=== PATIENT | female | born 1990 | race Caucasian/White ===

== ENCOUNTER 2017-09-30 14:11 | Emergency (ER) | payer OTHER ==
[~2017-09-30] VITALS: Ht 170.2 cm; Wt 116.1 kg
[2017-09-30] MEDS ORDERED: MULTIVITAMINS1 EAC7 PO (14:27)
--- NOTE | 2017-09-30 14:57 | EKG ---
[facility] [address] [facility] [place] [address] Signed Normal sinus rhythm Normal ECG No previous ECGs available Confirmed by FRANCESCA DA SILVA MD ([id number]) on 09/30/2017 2:57:47 PM Electronically Signed By: FRANCESCA DA SILVA MD 09/30/17 1457 PATIENT NAME: DEREK BOOTHE Electrocardiogram DATE OF : 89 PHYSICIAN: FRANCESCA DA SILVA MD REPORT #: [id number] REPORT IS CONFIDENTIAL AND NOT TO BE RELEASED WITHOUT AUTHORIZATION
--- OUTSIDE RECORDS SUMMARY | 2017-09-30 15:41 | XMS | Clinical Summary ---
Demographics + + + | Address | [address] | | | [place] [address] | + + + | Home Phone | | + + + | Preferred Language | Unknown | + + + | Marital Status | | + + + | Hindu Affiliation | NRP | + + + | Race | White | + + + | Ethnic Group | Not or | + + + Author + + + | Author | [facility] | + + + | Organization | [facility] | + + + | Address | Unknown | + + + | Phone | Unavailable | + + + Support +------+ + + + +-------+ | Name | Relationship | Address | Phone | +------+ + + + +-------+ ECON | [address] | | #[place] | [address] | +------+ + + + +-------+ ECON | Unknown | | +------+ + + + +-------+ Care Team Providers + +------+ + | Care Astro Technician Name | Role | Phone | + +------+ + | No Pcp Per Patient | PP | Unavailable | + +------+ + Source Comments KIANNA is fully live on both EpicCare Ambulatory and EpicCare InPatient.[facility] Allergies + + + + + + | Active Allergy | Reactions | Severity | Noted | Comments | | | | | Date | | + + + + + + | Penicillin | Rash, Nausea and | | 04/22/20 | | | | Vomiting | | 17 | | + + + + + + | Soy | Hives | | 04/22/20 | | | | | | 17 | | + + + + + + Current Medications No known medications Active Problems Not on file Social History + +-------+ +--------+------+ | Tobacco Use | Types | Packs/Day | Years | Date | | | | | Used | | + +-------+ +--------+------+ | Never Smoker | | | | | + +-------+ +--------+------+ + +---+---+---+ | Smokeless Tobacco: | | | | | Never Used | | | | + +---+---+---+ + + +---------+ + | Alcohol Use | Drinks/We | oz/Week | Comments | | | ek | | | + + +---------+ + | Yes | | | once in a while | + + +---------+ + + + + | Sex Assigned at | Date Recorded | | | | + + + | Not on file | | + + + Last Filed Vital Signs + + + + | Vital Sign | Reading | Time Taken | + + + + | Blood Pressure | 116/67 | 04/22/2017 10:07 PM PDT | + + + + | Pulse | - | - | + + + + | Temperature | 36.8 C (98.2 F) | 04/22/2017 7:18 PM PDT | + + + + | Respiratory Rate | 16 | 04/22/2017 10:07 PM PDT | + + + + | Oxygen Saturation | 99% | 04/22/2017 10:07 PM PDT | + + + + | Inhaled Oxygen | - | - | | Concentration | | | + + + + | Weight | - | - | + + + + | Height | - | - | + + + + | Body Mass Index | - | - | + + + + Plan of Treatment + + + + + | Health Maintenance | Due Date | Last Done | Comments | + + + + + | INFLUENZA VACCINE | | | | | (FLU SHOT) | 7 | | | + + + + + Results Not on filefrom Last 3 Months"
--- OUTSIDE RECORDS SUMMARY | 2017-09-30 15:41 | XMS | Clinical Summary ---
Demographics + + + | Address | [address] | | | [place] [address] | + + + | Home Phone | | + + + | Preferred Language | Unknown | + + + | Marital Status | | + + + | Worship Affiliation | NRP | + + + [...] [address] | | #[place] | [phone] | +------+ + + + +-------+ ECON | Unknown | | +------+ + + + +-------+ Care Team Providers + +------+ + | Care Eligibility And Occupancy Interviewer Name | Role | Phone | + +------+ + | No Pcp Per Patient | PP | Unavailable | + +------+ + Source Comments KIANNA is fully live on both EpicCare Ambulatory and EpicCare InPatient.[facility] [place] Allergies + + + + + + [...]
== END 2017-09-30 16:58 | disposition home or self-care (01) ==
LOC: ED 14:11
DX: O99.89 Other specified diseases and conditions complicating pregnancy, childbirth and the puerperium (principal); R07.9 Chest pain, unspecified; O99.612 Diseases of the digestive system complicating pregnancy, second trimester; K29.70 Gastritis, unspecified, without bleeding; Z88.0 Allergy status to penicillin; Z91.018 Allergy to other foods; Z3A.18 18 weeks gestation of pregnancy
CPT/HCPCS: 80053; 81001; 84484; 85025; 93005; 93010; 99284

== ENCOUNTER 2018-02-28 00:03 | Inpatient (IN) | payer OTHER ==
[~2018-02-28] VITALS: Ht 167.6 cm; Wt 125.0 kg
[~2018-02-28 00:03] MED LIST: MULTIVITAMINS1 EAC7 PO
--- NOTE | 2018-02-28 16:18 | PR ---
[facility] [address] [facility] [place], [place] [address] Signed Progress Notes IP Datetime Report Generated by CPN: 02/28/2018 16:18 PROGRESS NOTES: [id number] Impression: Normal progression of labor Plan: Continue present management; Anticipate Vaginal Delivery VITAL SIGNS: [id number] Vital Signs: Reviewed; Within Normal Limits EXAM: [id number] Dilatation: 5.0 Effacement: 90 Station: -2 Uterine Contractions: every 2-4 minutes MEMBRANES: [id number] Membrane Status: Ruptured Comments: Comfortable with Epidural, making good progress. Will continue monitoring. Fetus A: [id number] FHR Baseline: 135 Variability: Moderate 6-25bpm Accelerations: 15X15 Fetus B: [id number] Signing Physician: Jo Abrams MD Copies: ~ *Electronically Signed* 02/28/18 1618 JO ABRAMS MD PATIENT NAME: DEREK BOOTHE PROGRESS NOTE DATE OF : 89 PHYSICIAN: JO ABRAMS MD RPT #: [id number] REPORT IS CONFIDENTIAL AND NOT TO BE RELEASED WITHOUT AUTHORIZATION
--- NOTE | 2018-02-28 22:11 | PR ---
[facility] [address] [facility] [place], [place] [address] Signed Progress Notes IP Datetime Report Generated by CPN: 02/28/2018 22:11 PROGRESS NOTES: [id number] Impression: Slow Progression of Labor Procedures: Intrauterine Pressure Catheter; Scalp Electrode Plan: Continue present management VITAL SIGNS: [id number] Vital Signs: Reviewed; Within Normal Limits EXAM: [id number] Dilatation: 8.0 Effacement: 90 Station: 0 Uterine Contractions: every 2-3 minutes MEMBRANES: [id number] Membrane Status: Ruptured Amniotic Fluid Color: Clear Comments: Contractions more regular, getting stronger. Comfortable with Epidural. Continue to increase Pitocin Fetus A: [id number] FHR Baseline: 135 Variability: Moderate 6-25bpm Accelerations: 15X15 Presentation: Vertex Fetus B: [id number] Signing Physician: Jo Abrams MD Copies: ~ *Electronically Signed* 02/28/18 2211 JO ABRAMS MD PATIENT NAME: DEREK BOOTHE PROGRESS NOTE DATE OF : 89 PHYSICIAN: JO ABRAMS MD RPT #: [id number] REPORT IS CONFIDENTIAL AND NOT TO BE RELEASED WITHOUT AUTHORIZATION
--- NOTE | 2018-03-02 12:02 | PR ---
[facility] [address] [place] [address] Signed PP Progress Notes Datetime Report Generated by CPN: 03/02/2018 12:02 SUBJECTIVE: [id number] Pain: Within normal limits Nausea/Vomiting: Denies Vital Signs: [id number] Vital Signs: Reviewed; Within Normal Limits Notable Details: PP HGb/Hct = 9.6/28.5 EXAM: [id number] Abdomen/Uterus: Normal Lochia: Normal Extremities: Normal IMPRESSION/PLAN/PROCEDURES: [id number] Impression: Normal progression Other Impression: PP Anemia Plan: Continue present management Procedures: None Progress Notes: Doing well, without complaitn. Plan home tomorrow. Signing Physician: Jo Abrams MD Copies: ~ *Electronically Signed* 03/02/18 1202 JO ABRAMS MD PATIENT NAME: DEREK BOOTHE PROGRESS NOTE DATE OF : 89 PHYSICIAN: JO ABRAMS MD RPT #: [id number] REPORT IS CONFIDENTIAL AND NOT TO BE RELEASED WITHOUT AUTHORIZATION
--- NOTE | 2018-03-03 10:23 | PR ---
[facility] [address] [place] [address] Signed PP Progress Notes Datetime Report Generated by CPN: 03/03/2018 10:23 SUBJECTIVE: [id number] Pain: Within normal limits Nausea/Vomiting: Denies Vital Signs: [id number] Vital Signs: Reviewed; Within Normal Limits Notable Details: PP HGb/Hct = 9.6/28.5 EXAM: [id number] Abdomen/Uterus: Normal Lochia: Normal Extremities: Normal IMPRESSION/PLAN/PROCEDURES: [id number] Impression: Normal progression Other Impression: PP Anemia Plan: Discharge Procedures: None Progress Notes: Doing well, without complaint, ready to go home. Signing Physician: Jo Abrams MD Copies: ~ *Electronically Signed* 03/03/18 1023 JO ABRAMS MD PATIENT NAME: DEREK BOOTHE PROGRESS NOTE DATE OF : 89 PHYSICIAN: JO ABRAMS MD RPT #: [id number] REPORT IS CONFIDENTIAL AND NOT TO BE RELEASED WITHOUT AUTHORIZATION
== END 2018-03-03 11:10 | disposition home or self-care (01) | DRG 775 ==
LOC: FBC 00:05
PROVIDERS: ADMIT General Practice
PROC: 3E0P7VZ Introduction of Hormone into Female Reproductive, Via Natural or Artificial Opening (ICD-10-PCS; 2018-02-28)
PROC: 10H07YZ Insertion of Other Device into Products of Conception, Via Natural or Artificial Opening (ICD-10-PCS; 2018-02-28)
PROC: 00HU33Z Insertion of Infusion Device into Spinal Canal, Percutaneous Approach (ICD-10-PCS; 2018-02-28)
PROC: 3E0R3BZ Introduction of Anesthetic Agent into Spinal Canal, Percutaneous Approach (ICD-10-PCS; 2018-02-28)
PROC: 10E0XZZ Delivery of Products of Conception, External Approach (ICD-10-PCS; principal; 2018-03-01)
PROC: 0KQM0ZZ Repair Perineum Muscle, Open Approach (ICD-10-PCS; 2018-03-01)
PROC: 0UQMXZZ Repair Vulva, External Approach (ICD-10-PCS; 2018-03-01)
DX: O24.420 Gestational diabetes mellitus in childbirth, diet controlled (principal); O66.0 Obstructed labor due to shoulder dystocia; O90.81 Anemia of the puerperium; D64.9 Anemia, unspecified; O70.1 Second degree perineal laceration during delivery; O9A.22 Injury, poisoning and certain other consequences of external causes complicating childbirth; S06.9X0S Unspecified intracranial injury without loss of consciousness, sequela; W22.8XXS Striking against or struck by other objects, sequela; R51 Headache; Z79.899 Other long term (current) drug therapy; Z88.0 Allergy status to penicillin; Z3A.40 40 weeks gestation of pregnancy; Z37.0 Single live birth
CPT/HCPCS: 01960; 36415; 85027; J2550; J2590; J2795; J3010; J7120

== ENCOUNTER 2019-11-25 04:46 | Emergency (ER) | payer OTHER ==
[~2019-11-25] VITALS: Ht 167.6 cm; Wt 113.4 kg
== END 2019-11-25 05:47 | disposition home or self-care (01) ==
LOC: ED 04:46
DX: J45.909 Unspecified asthma, uncomplicated (principal); J01.90 Acute sinusitis, unspecified; Z88.0 Allergy status to penicillin; Z91.018 Allergy to other foods
CPT/HCPCS: 99283